=== PATIENT | female | born 1975 | race Caucasian/White ===

== ENCOUNTER 2019-12-23 10:18 | Day surgery (SDC) | payer BC ==
[~2019-12-23 10:18] MED LIST: Lactated Ringers 1,000 ML IV SCH; Sodium Chloride 0.9% 10 ML SDV IV PRN; Sodium Chloride 0.9% 10 ML Syringe FLUSH PRN; Sodium Chloride 0.9% 2.5 ML Syringe FLUSH PRN; ceFAZolin 2 GM in Premix Bag 1 BAG IV ONE
[2019-12-23] MEDS ORDERED: Lidocaine 2% 5 ML SDV ONE (10:49)
[2019-12-23] MEDS ORDERED: Midazolam 1 MG/ML 2 ML SDV ONE ×2 (10:49→12:59)
[2019-12-23] MEDS ORDERED: fentaNYL 100 MCG/2 ML SDV ONE (10:49)
[2019-12-23] MEDS ORDERED: Propofol 200 MG/20 ML SDV ONE ×2 (10:49→13:03)
--- NOTE | 2019-12-23 10:55 | PCM.PREANE ---
Preanesthetic Assessment - Anesthesia/Transfusion/Family Hx Anesthesia History: Prior Anesthesia Without Reaction Family History of Anesthesia Reaction: No Transfusion History: No Prior Transfusion(s) - Review of Systems General: No Symptoms Pulmonary: No Symptoms Cardiovascular: No Symptoms Gastrointestinal: No Symptoms Neurological: No Symptoms Other: Reports: None - Physical Assessment NPO Status Date: 12/22/19 Height: 5 ft 7 in Weight: 95.254 kg ASA Class: 2 Mental Status: Alert & Oriented x3 Airway Class: Mallampati = 2 Dentition: Reports: Normal Dentition ROM/Head Extension: Full Lungs: Clear to Auscultation, Normal Respiratory Effort Cardiovascular: Regular Rate, Regular Rhythm - Lab Values: Laboratory Last Values Urine HCG, Qual NEGATIVE (NEGATIVE) 12/23/19 10:29 - Allergies Allergies/Adverse Reactions: Allergies Allergy/AdvReac Type Severity Reaction Status Date / Time No Known Allergies Allergy Verified 12/15/19 08:24 - Blood Blood Available: No - Anesthesia Plan Pre-Op Medication Ordered: None - Acknowledgements Anesthesia Type Planned: General Anesthesia Pt an Appropriate Candidate for the Planned Anesthesia: Yes Alternatives and Risks of Anesthesia Discussed w Pt/Guardian: Yes Pt/Guardian Understands and Agrees with Anesthesia Plan: Yes Additional Comments: PMH: dm2, htn PLAN: ga/lma PreAnesthesia Questionnaire HEENT History: Reports: Other (See Below) Other HEENT History: wears glasses Cardiovascular History: Reports: Hypertension Respiratory History: Reports: None Gastrointestinal History: Reports: GERD Genitourinary History: Reports: None [employer] History: Reports: Musculoskeletal History: Reports: None Neurological History: Reports: None Psychiatric History: Reports: None Endocrine/Metabolic History: Reports: Obesity/BMI 30+ Hematologic History: Reports: None Immunologic History: Reports: None Oncologic (Cancer) History: Reports: None Dermatologic History: Reports: None - Past Surgical History Head Surgeries/Procedures: Reports: None HEENT Surgical History: Reports: None Cardiovascular Surgical History: Reports: None Respiratory Surgical History: Reports: None GI Surgical History: Reports: None Female Surgical History: Reports: Section Endocrine Surgical History: Reports: None Neurological Surgical History: Reports: None Musculoskeletal Surgical History: Reports: None Oncologic Surgical History: Reports: None Dermatological Surgical History: Reports: None - SUBSTANCE USE Smoking Status *Q: Never Smoker - HOME MEDS Home Medications: Home Meds Canagliflozin/Metformin HCl [Invokamet Xr 150-1,000 mg Tab] 2 tab PO DAILY 12/12/19 [History] Losartan Potassium 25 mg PO DAILY 12/12/19 [History] Omeprazole Magnesium [Prilosec Otc] 20 mg PO DAILY 12/12/19 [History] diphenhydrAMINE HCL [Sleep Aid] 2 tab PO BEDTIME 12/15/19 [History] - CURRENT (IN HOUSE) MEDS Current Meds: Current Medications Lactated Ringer's (Ringers, Lactated) 1,000 mls @ 125 mls/hr IV ASDIRECTED EDDIE Sodium Chloride (Normal Saline) 10 ml IV ASDIRECTED PRN PRN Reason: IV Use Sodium Chloride (Saline Flush) 10 ml FLUSH ASDIRECTED PRN PRN Reason: Keep Vein Open Sodium Chloride (Saline Flush) 2.5 ml FLUSH ASDIRECTED PRN PRN Reason: Keep Vein Open Discontinued Medications Fentanyl (Sublimaze) Confirm Administered Dose 100 mcg .ROUTE .STK-MED ONE Stop: 12/23/19 10:50 Cefazolin Sodium/Dextrose 2 gm (/ Premix) 50 mls @ 100 mls/hr IV ONETIME ONE Stop: 12/15/19 09:21 Lidocaine (Xylocaine-Mpf 2%) Confirm Administered Dose 5 ml .ROUTE .STK-MED ONE Stop: 12/23/19 10:50 Midazolam HCl (Versed 1 Mg/Ml) Confirm Administered Dose 2 mg .ROUTE .STK-MED ONE Stop: 12/23/19 10:50 Propofol (Diprivan 20 Ml) Confirm Administered Dose 400 mg .ROUTE .STK-MED ONE Stop: 12/23/19 10:50
[2019-12-23] MEDS ORDERED: Bupivacaine 0.5% 30 ML SDV ONE (12:24)
[2019-12-23] MEDS ORDERED: Lidocaine 1% 20 ML MDV ONE (12:25)
[2019-12-23] MEDS ORDERED: Bupivacaine 0.5% 10 ML SDV ONE (12:38)
[2019-12-23] MEDS ORDERED: ceFAZolin 1 GM Vial ONE (12:54)
[2019-12-23] MEDS ORDERED: Octyl 2-Cyanoacrylate 1 Tube ONE (12:59)
[2019-12-23] MEDS ORDERED: Ketorolac 30 MG/ML SDV ONE (13:05)
--- NOTE | 2019-12-23 13:19 | PCM.OPNOTE ---
- General Post-Op/Procedure Note Date of Surgery/Procedure: 12/23/19 Operative Procedure(s): Excision right chest wall mass Findings: 3.5 x 3.5 x 1 cm globular piece of fat that appears separate from the surrounding tissue. Appears to be a lipoma. Pre Op Diagnosis: Right chest wall mass Post-Op Diagnosis: same Anesthesia Technique: Local, MAC Primary Surgeon: Jeannette Salazar Pathology: right chest wall mass Fluid Replacement, Intraop: 950 EBL in mLs: 3 Condition: Good
--- NOTE | 2019-12-23 13:35 | PCM48HPAN ---
Post Anesthesia Note - EVALUATION WITHIN 48HRS OF ANESTHETIC Vital Signs in Normal Range: Yes Patient Participated in Evaluation: Yes Respiratory Function Stable: Yes Airway Patent: Yes Cardiovascular Function Stable: Yes Hydration Status Stable: Yes Pain Control Satisfactory: Yes Nausea and Vomiting Control Satisfactory: Yes Mental Status Recovered: Yes Vital Signs: Last Vital Signs Temp 98.1 F 12/23/19 13:12 Pulse 81 12/23/19 13:28 Resp 21 H 12/23/19 13:28 BP 125/70 12/23/19 13:28 Pulse Ox 93 L 12/23/19 13:28
--- NOTE | 2019-12-23 13:35 | PCM.POSTAN ---
POST ANESTHESIA ASSESSMENT - MENTAL STATUS Mental Status: Alert, Oriented - VITAL SIGNS Vital Signs: Last Vital Signs Temp 98.1 F 12/23/19 13:12 Pulse 81 12/23/19 13:28 Resp 21 H 12/23/19 13:28 BP 125/70 12/23/19 13:28 Pulse Ox 93 L 12/23/19 13:28 - RESPIRATORY Respiratory Status: Respiratory Rate WNL, Airway Patent, O2 Saturation Stable - CARDIOVASCULAR CV Status: Pulse Rate WNL, Blood Pressure Stable - GASTROINTESTINAL GI Status: No Symptoms - POST OP HYDRATION Hydration Status: Adequate & Stable
--- NOTE | 2019-12-24 17:30 | OR ---
SURGEON: JEANNETTE SALAZAR MD DATE OF PROCEDURE: 12/23/2019 PREOPERATIVE DIAGNOSIS: Right chest wall mass. POSTOPERATIVE DIAGNOSIS: Right chest wall mass. PROCEDURE PERFORMED: Excision of right chest wall mass. PRIMARY SURGEON: Jeannette Salazar MD ANESTHESIA: MAC, local. FLUIDS: 950 mL of crystalloid. ESTIMATED BLOOD LOSS: 3 mL. FINDINGS: 3.5 x 3.5 x 1 cm fatty mass excised from the right upper outer chest wall. No margins were associated with the case. The mass appeared to be a lipoma. COMPLICATIONS: None. INDICATIONS: The patient is a 44-year-old female who had presented to my clinic within the last year with an enlarging right chest wall mass. Imaging showed a fatty mass consistent with that of a lipoma. The patient came back to my clinic for followup imaging. This showed a stable fatty mass consistent with a lipoma. However, the patient feels like it is changing and painful and would like to have it removed. The patient and I discussed the procedure; expected perioperative course; as well as the risks including bleeding, infection, damage to surrounding structures, or the need for further procedures should this not be a benign process. She verbalized understanding and wishes to proceed. PROCEDURE IN DETAIL: The patient was brought into the OR and placed on the OR table in supine position. A time-out was completed verifying the patient's name, age, date of , allergies, and procedure to be performed. Monitored anesthesia care was induced. Continuous oxygen was provided via face mask throughout the procedure. The right chest wall was prepped and draped in usual standard fashion. The mass had been marked in the preoperative area. I anesthetized the area around this with a 1:1 mixture of 0.5% Marcaine plain and 1% lidocaine plain. A 15 blade was used to make a 3 cm incision over the top of the mass. After making the incision, I immediately noted a globular appearing mass right under the skin. Using electrocautery, I dissected around this mass. I then used blunt dissection to separate it from the surrounding tissues. It clearly appeared to be a separate process from the surrounding fatty tissue. It was gently grasped and elevated. I undermined the lesion and then placed it on the back table. It appeared to be a 3.5 x 3.5 x 1 cm fatty mass consistent with a lipoma. The mass was sent to pathology, labeled as right chest wall mass. Using electrocautery, I achieved hemostasis within the wound. I then used layers of interrupted 3-0 Vicryl sutures to close the wound. The skin was then closed with a running 4-0 Monocryl stitch. Dermabond and sterile dressings were applied. The patient tolerated the procedure well and was transferred to the PACU in stable condition. All counts were complete and correct at the end of the case. JACK / TIERRA /[id number]
== END 2019-12-23 14:30 | disposition home or self-care (01) ==
LOC: MW.SDS 10:18
PROVIDERS: ATTEND Surgery
DX: D17.1 Benign lipomatous neoplasm of skin and subcutaneous tissue of trunk (principal); E66.9 Obesity, unspecified; I10 Essential (primary) hypertension; K21.9 Gastro-esophageal reflux disease without esophagitis; E11.9 Type 2 diabetes mellitus without complications; Z68.32 Body mass index [BMI] 32.0-32.9, adult; Z79.899 Other long term (current) drug therapy
CPT/HCPCS: 21552; 81025; 88304; A9270; J0690; J1885; J2001; J2250; J2704; J3010; J3490; J7120; 00400

== ENCOUNTER 2024-04-09 09:02 | Day surgery (SDC) | payer BC ==
[~2024-04-09 09:02] MED LIST changes: +Albuterol 0.083% 2.5 MG/3 ML Neb Soln NEB PRN; +Bupivacaine 0.5%/EPINEPHrine 1:200,000 30 ML SDV ONE; +HYDROmorphone 1 MG/ML Syringe IVPUSH PRN; -Lactated Ringers 1,000 ML IV SCH; +Metoclopramide 10 MG/2 ML SDV IVPUSH PRN; +Morphine 2 MG/ML SYRINGE IVPUSH PRN; +Naloxone 0.4 MG/ML SDV IVPUSH PRN; +Phenylephrine HCl In 0.9% NaCl 1 MG/10 ML Syringe IVPUSH PRN; -Sodium Chloride 0.9% 10 ML SDV IV PRN; -Sodium Chloride 0.9% 10 ML Syringe FLUSH PRN; -Sodium Chloride 0.9% 2.5 ML Syringe FLUSH PRN; -ceFAZolin 2 GM in Premix Bag 1 BAG IV ONE; +ceFAZolin 2 GM in Sodium Chloride 0.9% 50 ML IV ONE; +fentaNYL 50 MCG/ML SDV IVPUSH PRN
[2024-04-09] MEDS ORDERED: Sugammadex Sodium 200 MG/2 ML VIAL IV ONE (09:03)
[2024-04-09] MEDS ORDERED: fentaNYL 100 MCG/2 ML SDV ONE (09:14)
[2024-04-09] MEDS ORDERED: Propofol 200 MG/20 ML SDV ONE (09:14)
[2024-04-09] MEDS ORDERED: Scopalamine 1mg/3day Transdermal Patch TOP ONE (09:15)
[2024-04-09] MEDS ORDERED: Rocuronium Bromide 50 MG/5 ML Syringe ONE ×2 (09:16→09:18)
[2024-04-09] MEDS ORDERED: dexmedeTOMIDine HCl 200 MCG/2 ML SDV ONE ×2 (09:16→11:18)
[2024-04-09] MEDS ORDERED: Sodium Chloride 0.9% 20 ML ONE (09:16)
[2024-04-09] MEDS: Lactated Ringers 1,000 ML IV SCH (09:45)
[2024-04-09] MEDS ORDERED: ceFAZolin 2 GM Vial ONE (10:54)
[2024-04-09] MEDS ORDERED: Dexamethasone 4 MG/ML 5 ML MDV ONE (10:59)
[2024-04-09] MEDS ORDERED: Ondansetron 4 MG/2 ML SDV ONE (10:59)
[2024-04-09] MEDS ORDERED: HYDROmorphone 1 MG/ML Syringe ONE (11:09)
[2024-04-09] MEDS ORDERED: Ketorolac 30 MG/ML SDV ONE (11:18)
[2024-04-09] MEDS: Ondansetron 4 MG/2 ML SDV IVPUSH PRN (12:37)
== END 2024-04-09 14:13 | disposition home or self-care (01) ==
LOC: MW.SDS 09:02
PROVIDERS: ATTEND Orthopaedic Surgery
DX: D17.24 Benign lipomatous neoplasm of skin and subcutaneous tissue of left leg (principal); E11.9 Type 2 diabetes mellitus without complications; I10 Essential (primary) hypertension; Z79.84 Long term (current) use of oral hypoglycemic drugs; Z79.899 Other long term (current) drug therapy
CPT/HCPCS: 27632; 81025; J0131; J0690; J1100; J1171; J1885; J2405; J2704; J3010; J7120; 00400; J3490